=== PATIENT | male | born 1955 | race Caucasian/White ===

== ENCOUNTER 2017-04-05 19:45 | Inpatient (IN) | payer MEDICARE, MEDICAID ==
[~2017-04-05] VITALS: Ht 182.9 cm; Wt 106.6 kg
--- NOTE | 2017-04-05 20:15 | NUR ---
Pt biba to room for medical clearance prior to admission to MHU. Pt placed on a 5250. Reviewing pt's paperwork showed the pt arrived with a copy of the hold not the original. Sole Conditioner, Brittany, notified. ER MD Dr. Waite notified. BLS crew sent back to facility to retreive the original. Called and spoke to the charge nurse of the ICU SYDNEY Luong made aware of situation. Dispatch for ambulance crew also notified crew will be returning to facility to obtain original.
[2017-04-05] MEDS ORDERED: POLY255P2 PO (20:34)
[2017-04-05] MEDS ORDERED: LITH600C PO (20:34)
[2017-04-05] MEDS ORDERED: PANT40TA4 PO (20:34)
[2017-04-05] MEDS ORDERED: AMLO10TA2 PO (20:34)
[2017-04-05] MEDS ORDERED: TAMS0.4C34 PO (20:34)
[2017-04-05] MEDS ORDERED: HYDR25TA4 PO (20:34)
[2017-04-05] MEDS ORDERED: LABE100T PO (20:34)
[2017-04-05] MEDS ORDERED: IPRA12.9 IH (20:34)
[2017-04-05] MEDS ORDERED: HALO5TAB PO (20:34)
[2017-04-05] MEDS ORDERED: TIOT18CA3 IH (20:34)
[2017-04-05] MEDS ORDERED: HEPA500034 IJ (20:34)
[2017-04-05] MEDS ORDERED: NICO1PAT46 TD (20:34)
[2017-04-05] MEDS ORDERED: HALO2TAB PO (20:34)
[2017-04-05] MEDS ORDERED: SENN-167 PO (20:34)
[2017-04-05] MEDS ORDERED: CLOZ200T PO (20:34)
[2017-04-05] MEDS ORDERED: LORA2VIA6 IV (20:34)
--- NOTE | 2017-04-05 21:00 | NUR ---
Informed by Aidan OzunaPurchasing And Claims Supervisor that we would only have a copy of the 5250 because the original is filed with the court system. Primary SYDNEY Wilde and Dr. Waite notified.
--- NOTE | 2017-04-05 21:54 | NUR ---
Call placed to [facility], Dr. Gabriel will be paged.
[2017-04-05] MEDS ORDERED: SENNOSIDES 1 TABLET PO PRN (22:45)
[2017-04-05] MEDS ORDERED: hydrALAZINE HCL 25 MG TABLET PO PRN (22:45)
--- NOTE | 2017-04-05 22:56 | NUR ---
Pt. admitted to gps , under care of [facility] completed
[2017-04-05 23:15] VITALS: BP 133/81
[2017-04-05] MEDS ORDERED: MAGNESIUM HYDROXIDE 30 ML LIQUID UDC PO PRN (23:30)
[2017-04-05] MEDS ORDERED: MAG HYDROX/AL HYDROX/SIMETH 30 ML LIQUID UDC PO PRN (23:30)
[2017-04-06] MEDS ORDERED: ZOLPIDEM 5 MG TABLET ONE (00:16)
[2017-04-06] MEDS: ZOLPIDEM 5 MG TABLET PO PRN (00:33)
--- NOTE | 2017-04-06 01:00 | NUR ---
RECEIVED TO CARE, FROM THE EMERGENCY ROOM, TRANSFER FROM [facility]. BIB HIS BROTHER/CONSERVATOR. HAS A HISTORY OF SCHIZOPHRENIA. HE LIVES AT A [facility], WHERE HE HAD BEEN DECOMPENSATING, RECENTLY. HE WAS BROUGHT TO THE [facility], WHERE HE WAS TREATED IN ICU, FOR HYPERTENSIVE CRISIS.HE ALSO HAD A TONIC CLONIC SEIZURE, THAT LASTED ABOUT 3 MINUTES, ON 04/02/17 (THIS WAS THE FIRST EPISODE OF HIS HAVING SEIZURES). UPON ARRIVAL, HE WAS CONFUSED AND DISORGANIZED. HIS BROTHER PROVIDED INFORMATION. HE WAS ASSITED TO BED AT 0033, AND GIVEN PRN AMBIEN, FOR INSOMNIA. OF 99, HE APPEARS TO BE ASLEEP. NO DISTRESS NOTED. BED RAILS PADDED FOR SAFETY. BED ALARM ON. HOB ELEVATED. WILL CONTINUE TO MONITOR CLOSELY.
--- NOTE | 2017-04-06 06:00 | NUR ---
slept 1.5 hours, total. assisted with AM care, and shower. currently up in neli chair in activity room, talking to self. no distress noted. will continue to monitor closely.
--- NOTE | 2017-04-06 07:25 | NUR ---
RECEIVED TO CARE, PT [facility], PT IS CALM AND QUIET.
[2017-04-06 07:30] VITALS: BP 130/83
[2017-04-06 07:36] LABS: BASOPHILS % (AUTO) 0.1 % (0.0-2.0); EOSINOPHILS % (AUTO) 0.6 % (0.0-7.0); HEMOGLOBIN 14.6 G/DL (14.0-18.0); LYMPHOCYTES # (AUTO) 0.9 K/UL (0.8-4.8); LYMPHOCYTES % (AUTO) 12.9 % (20.5-51.5); MEAN CORPUSCULAR HEMOGLOBIN 30.9 UUG (27.0-31.0); MEAN CORPUSCULAR HGB CONC 35 g/dL (32.0-37.0); MEAN CORPUSCULAR VOLUME 88.8 FL (82.0-92.0); MONOCYTES # (AUTO) 0.6 K/UL (0.1-1.30); MONOCYTES % (AUTO) 8.2 % (0.0-11.0); NEUTROPHILS # (AUTO) 5.3 K/UL (1.8-8.9); NEUTROPHILS % (AUTO) 78.2 % (38.5-71.5); PLATELET COUNT (AUTO) 159 K/UL (150-450); RED BLOOD CELL COUNT(AUTO) 4.74 MIL/UL (4.7-6.1); WHITE BLOOD COUNT (AUTO) 6.9 K/UL (4.0-11.2)
[2017-04-06 07:57] LABS: THYROID STIMULATING HORMONE 3.02 mIU/mL (0.358-3.740)
[2017-04-06 08:09] LABS: BILIRUBIN,TOTAL 3.6 mg/dL (0.2-1.0); CREATININE 1.1 mg/dL (0.6-1.3); MAGNESIUM 1.9 mg/dL (1.8-2.4); PHOSPHOROUS 3.6 mg/dL (2.5-4.9); POTASSIUM 3.6 mmol/L (3.5-5.1)
[2017-04-06] MEDS: CARVEDILOL 3.125 MG TABLET PO SCH ×2 (09:49→23:03)
[2017-04-06] MEDS: HYDROCHLOROTHIAZIDE 25 MG TABLET PO SCH (09:49)
[2017-04-06] MEDS: AMLODIPINE 10 MG TABLET PO SCH (09:50)
[2017-04-06] MEDS: PANTOPRAZOLE SODIUM 40 MG TABLET.DR PO SCH (10:13)
[2017-04-06] MEDS: NICOTINE 7 MG/24HR PATCH TD SCH (10:18)
[2017-04-06 15:00] VITALS: BP 163/86
[2017-04-06] MEDS ORDERED: POLYETHYLENE GLYCOL 3350 238 GM POWDER PO SCH (16:00)
[2017-04-06] MEDS: CLOZAPINE 100 MG TABLET PO SCH ×2 (17:48→23:05)
[2017-04-06] MEDS: MIRALAX 17 GM POWD.PACK PO SCH (17:48)
--- NOTE | 2017-04-06 18:40 | NUR ---
PT IN GERICHAIR WATCHING TV IN DAYROOM, BROTHER VISITING PT.
[2017-04-06 20:58] VITALS: BP 120/81
[2017-04-06] MEDS: TAMSULOSIN HCL 0.4 MG CAP.SR.24H PO SCH (23:04)
[2017-04-07] MEDS: PANTOPRAZOLE SODIUM 40 MG TABLET.DR PO SCH (07:12)
[2017-04-07 07:14] LABS: BILIRUBIN,DIRECT 0.3 mg/dL (0.0-0.2); BILIRUBIN,TOTAL 2.8 mg/dL (0.2-1.0); TOTAL PROTEIN, SERUM 6.7 g/dL (6.4-8.2)
[2017-04-07 07:30] VITALS: BP 150/72
[2017-04-07] MEDS: HYDROCHLOROTHIAZIDE 25 MG TABLET PO SCH (08:45)
[2017-04-07] MEDS: NICOTINE 7 MG/24HR PATCH TD SCH (08:45)
[2017-04-07] MEDS: MIRALAX 17 GM POWD.PACK PO SCH (08:45)
[2017-04-07] MEDS: LORAZEPAM 0.5 MG TABLET PO PRN ×2 (08:45→13:07)
[2017-04-07] MEDS: CLOZAPINE 100 MG TABLET PO SCH ×3 (08:46→20:15)
[2017-04-07] MEDS: CARVEDILOL 3.125 MG TABLET PO SCH ×2 (08:46→20:15)
[2017-04-07] MEDS: AMLODIPINE 10 MG TABLET PO SCH (08:46)
[2017-04-07] MEDS: ACETAMINOPHEN 325 MG TABLET PO PRN (13:07)
[2017-04-07 15:24] VITALS: BP 106/56
[2017-04-07 20:00] VITALS: BP 133/79
[2017-04-07] MEDS: TAMSULOSIN HCL 0.4 MG CAP.SR.24H PO SCH (20:14)
[2017-04-08] MEDS: PANTOPRAZOLE SODIUM 40 MG TABLET.DR PO SCH (06:17)
[2017-04-08 07:30] VITALS: BP 128/77
[2017-04-08] MEDS: AMLODIPINE 10 MG TABLET PO SCH ×2 (09:00→10:50)
[2017-04-08] MEDS: MIRALAX 17 GM POWD.PACK PO SCH ×2 (09:00→10:50)
[2017-04-08] MEDS: HYDROCHLOROTHIAZIDE 25 MG TABLET PO SCH ×2 (09:00→10:50)
[2017-04-08] MEDS: CLOZAPINE 100 MG TABLET PO SCH ×4 (09:00→20:26)
[2017-04-08] MEDS: CARVEDILOL 3.125 MG TABLET PO SCH ×3 (09:00→20:27)
[2017-04-08] MEDS: NICOTINE 7 MG/24HR PATCH TD SCH (10:27)
--- NOTE | 2017-04-08 11:40 | NUR ---
Spoke to kassandra nurse and pt will be npo tmrw moring. will do abdomen limt and venous dop tmrw AM.
--- NOTE | 2017-04-08 13:22 | NUR ---
Initial discharge instructions: The patient resides at [facility] [[address] [place] [address]. [place] [address]; ]. JORDNO spoke with the Environmental Health Manager Ghassan who stated that they are able to accept the patient back upon discharge. JORDON spoke with the patient's brother/probate conservator Hoang Tinoco and he would like for the patient to return to the [facility]. JORDON will speak with the patient, family, and MD regarding most appropriate discharge plans. SS will form a safe and proper discharge.
[2017-04-08 17:02] VITALS: BP 132/74
[2017-04-08] MEDS: TAMSULOSIN HCL 0.4 MG CAP.SR.24H PO SCH (20:26)
[2017-04-08 20:40] VITALS: BP 136/79
--- NOTE | 2017-04-08 22:00 | NUR ---
received to care, up in wheel chair, pleasant upon approach. compliant with medications and staff direction. as of 2199, he appears to be asleep. no distress noted. will continue to monitor closely.
[2017-04-09] MEDS: ZOLPIDEM 5 MG TABLET PO PRN (01:53)
--- NOTE | 2017-04-09 01:53 | NUR ---
PRN ambien given for insomnia.
[2017-04-09] MEDS: ACETAMINOPHEN 325 MG TABLET PO PRN (01:54)
--- NOTE | 2017-04-09 02:30 | NUR ---
appears to be asleep. no distress noted.
--- NOTE | 2017-04-09 06:00 | NUR ---
slept 7 hours, total.
[2017-04-09] MEDS: PANTOPRAZOLE SODIUM 40 MG TABLET.DR PO SCH (06:40)
[2017-04-09 07:01] LABS: BASOPHILS % (AUTO) 0.3 % (0.0-2.0); EOSINOPHILS % (AUTO) 0.1 % (0.0-7.0); HEMOGLOBIN 12.9 G/DL (14.0-18.0); LYMPHOCYTES # (AUTO) 1.1 K/UL (0.8-4.8); LYMPHOCYTES % (AUTO) 15.1 % (20.5-51.5); MEAN CORPUSCULAR HEMOGLOBIN 31.5 UUG (27.0-31.0); MEAN CORPUSCULAR HGB CONC 36 g/dL (32.0-37.0); MEAN CORPUSCULAR VOLUME 87.8 FL (82.0-92.0); MONOCYTES # (AUTO) 0.7 K/UL (0.1-1.30); MONOCYTES % (AUTO) 10.5 % (0.0-11.0); NEUTROPHILS # (AUTO) 5.2 K/UL (1.8-8.9); PLATELET COUNT (AUTO) 163 K/UL (150-450)
[2017-04-09 07:09] LABS: HEMATOCRIT 36.1 % (40-50); RED BLOOD CELL COUNT(AUTO) 4.11 MIL/UL (4.7-6.1)
[2017-04-09 07:30] VITALS: BP 118/58
[2017-04-09 07:36] LABS: BILIRUBIN,TOTAL 2.3 mg/dL (0.2-1.0); CREATININE 1.1 mg/dL (0.6-1.3); MAGNESIUM 1.8 mg/dL (1.8-2.4); POTASSIUM 3.6 mmol/L (3.5-5.1); TOTAL PROTEIN, SERUM 6.4 g/dL (6.4-8.2)
[2017-04-09] MEDS: CLOZAPINE 100 MG TABLET PO SCH ×3 (09:55→20:14)
[2017-04-09] MEDS: NICOTINE 7 MG/24HR PATCH TD SCH (09:55)
[2017-04-09] MEDS: AMLODIPINE 10 MG TABLET PO SCH (09:56)
[2017-04-09] MEDS: CARVEDILOL 3.125 MG TABLET PO SCH ×2 (09:56→20:14)
[2017-04-09] MEDS: HYDROCHLOROTHIAZIDE 25 MG TABLET PO SCH (09:56)
[2017-04-09] MEDS: MIRALAX 17 GM POWD.PACK PO SCH (09:57)
[2017-04-09 16:38] VITALS: BP 136/69
[2017-04-09 19:30] VITALS: BP 136/75
[2017-04-09] MEDS: TAMSULOSIN HCL 0.4 MG CAP.SR.24H PO SCH (20:14)
[2017-04-10] MEDS: PANTOPRAZOLE SODIUM 40 MG TABLET.DR PO SCH (06:50)
[2017-04-10 07:30] VITALS: BP 143/59
[2017-04-10] MEDS: HYDROCHLOROTHIAZIDE 25 MG TABLET PO SCH (09:14)
[2017-04-10] MEDS: MIRALAX 17 GM POWD.PACK PO SCH (09:14)
[2017-04-10] MEDS: NICOTINE 7 MG/24HR PATCH TD SCH (09:15)
[2017-04-10] MEDS: CLOZAPINE 100 MG TABLET PO SCH ×3 (09:15→20:25)
[2017-04-10] MEDS: AMLODIPINE 10 MG TABLET PO SCH (09:15)
[2017-04-10] MEDS: CARVEDILOL 3.125 MG TABLET PO SCH ×2 (09:15→20:24)
[2017-04-10 10:10] LABS: HEPATITIS A AB, IgM Negative (Negative); HEPATITIS B SURFACE AG Negative (Negative)
[2017-04-10] MEDS: ACETAMINOPHEN 325 MG TABLET PO PRN (11:16)
[2017-04-10 16:00] VITALS: BP 113/57
[2017-04-10 20:12] VITALS: BP 134/76
[2017-04-10] MEDS: TAMSULOSIN HCL 0.4 MG CAP.SR.24H PO SCH (20:24)
--- NOTE | 2017-04-10 22:00 | NUR ---
received to care, lying in bed, isolative, but pleasant upon approach. compliant with medications and staff direction. no distress noted. fluids and bedtime snack provided. as of 2200, he appears to be asleep. no distress noted. will continue to monitor closely.
--- NOTE | 2017-04-11 06:00 | NUR ---
slept 7.5 hours, total. assisted with AM care, and shower.
[2017-04-11] MEDS: PANTOPRAZOLE SODIUM 40 MG TABLET.DR PO SCH (06:35)
[2017-04-11 07:30] VITALS: BP 128/54
[2017-04-11] MEDS: CLOZAPINE 100 MG TABLET PO SCH ×3 (08:38→20:17)
[2017-04-11] MEDS: HYDROCHLOROTHIAZIDE 25 MG TABLET PO SCH (08:38)
[2017-04-11] MEDS: NICOTINE 7 MG/24HR PATCH TD SCH (08:38)
[2017-04-11] MEDS: MIRALAX 17 GM POWD.PACK PO SCH (08:39)
[2017-04-11] MEDS: CARVEDILOL 3.125 MG TABLET PO SCH ×2 (08:39→20:17)
[2017-04-11] MEDS: AMLODIPINE 10 MG TABLET PO SCH (08:39)
--- NOTE | 2017-04-11 11:00 | NUR ---
PATIENT IS ALERT WITH DISORIENTATION HAS TENDENCY TO BE RUDE WITH WORDS REMAINS PARANOID AND SUSPICIOUS COMPLIANT WITH MEDICATIONS AND CARE.
[2017-04-11] MEDS: ACETAMINOPHEN 325 MG TABLET PO PRN (14:20)
[2017-04-11 16:00] VITALS: BP 121/81
--- NOTE | 2017-04-11 17:45 | NUR ---
GOING BACK AND FORTH FROM HIS ROOM TO THE DAY ROOM REMAIN COMPLIANT WITH MEDICATIONS AT THIS TIME
[2017-04-11] MEDS: TAMSULOSIN HCL 0.4 MG CAP.SR.24H PO SCH (20:17)
[2017-04-11 20:20] VITALS: BP 122/56
[2017-04-12] MEDS: PANTOPRAZOLE SODIUM 40 MG TABLET.DR PO SCH (06:23)
[2017-04-12 07:30] VITALS: BP 141/81
[2017-04-12] MEDS: HYDROCHLOROTHIAZIDE 25 MG TABLET PO SCH (10:43)
[2017-04-12] MEDS: CARVEDILOL 3.125 MG TABLET PO SCH ×2 (10:43→20:13)
[2017-04-12] MEDS: AMLODIPINE 10 MG TABLET PO SCH (10:44)
[2017-04-12] MEDS: MIRALAX 17 GM POWD.PACK PO SCH (10:45)
[2017-04-12] MEDS: NICOTINE 7 MG/24HR PATCH TD SCH (10:50)
[2017-04-12] MEDS: CLOZAPINE 100 MG TABLET PO SCH ×3 (10:51→20:13)
[2017-04-12 15:00] VITALS: BP 107/78
[2017-04-12] MEDS: TAMSULOSIN HCL 0.4 MG CAP.SR.24H PO SCH (20:13)
[2017-04-12 20:52] VITALS: BP 147/86
[2017-04-13] MEDS: PANTOPRAZOLE SODIUM 40 MG TABLET.DR PO SCH (06:13)
[2017-04-13 07:06] LABS: BASOPHILS % (AUTO) 0.3 % (0.0-2.0); EOSINOPHILS % (AUTO) 0.2 % (0.0-7.0); HEMATOCRIT 35.2 % (40-50); HEMOGLOBIN 12.4 G/DL (14.0-18.0); LYMPHOCYTES # (AUTO) 0.9 K/UL (0.8-4.8); LYMPHOCYTES % (AUTO) 10.9 % (20.5-51.5); MEAN CORPUSCULAR HEMOGLOBIN 30.8 UUG (27.0-31.0); MEAN CORPUSCULAR HGB CONC 35 g/dL (32.0-37.0); MEAN CORPUSCULAR VOLUME 87.5 FL (82.0-92.0); MONOCYTES # (AUTO) 0.8 K/UL (0.1-1.30); MONOCYTES % (AUTO) 9.3 % (0.0-11.0); NEUTROPHILS # (AUTO) 6.6 K/UL (1.8-8.9); NEUTROPHILS % (AUTO) 79.3 % (38.5-71.5); PLATELET COUNT (AUTO) 203 K/UL (150-450); RED BLOOD CELL COUNT(AUTO) 4.03 MIL/UL (4.7-6.1); WHITE BLOOD COUNT (AUTO) 8.3 K/UL (4.0-11.2)
[2017-04-13 07:30] VITALS: BP 116/77
[2017-04-13] MEDS: CARVEDILOL 3.125 MG TABLET PO SCH ×2 (08:41→20:24)
[2017-04-13] MEDS: CLOZAPINE 100 MG TABLET PO SCH ×3 (08:41→20:24)
[2017-04-13] MEDS: MIRALAX 17 GM POWD.PACK PO SCH (08:42)
[2017-04-13] MEDS: HYDROCHLOROTHIAZIDE 25 MG TABLET PO SCH (08:42)
[2017-04-13] MEDS: AMLODIPINE 10 MG TABLET PO SCH (08:42)
[2017-04-13] MEDS: NICOTINE 7 MG/24HR PATCH TD SCH (08:43)
--- NOTE | 2017-04-13 09:32 | NUR ---
NSG PT IN DAY ROOM, PT TOOK ALL AM MEDS.
[2017-04-13 16:59] VITALS: BP 170/72
[2017-04-13 20:00] VITALS: BP 139/82
[2017-04-13] MEDS: TAMSULOSIN HCL 0.4 MG CAP.SR.24H PO SCH (20:23)
[2017-04-14] MEDS: PANTOPRAZOLE SODIUM 40 MG TABLET.DR PO SCH (06:47)
[2017-04-14 07:30] VITALS: BP 133/71
[2017-04-14] MEDS: MIRALAX 17 GM POWD.PACK PO SCH (08:42)
[2017-04-14] MEDS: CLOZAPINE 100 MG TABLET PO SCH ×3 (08:42→20:26)
[2017-04-14] MEDS: HYDROCHLOROTHIAZIDE 25 MG TABLET PO SCH (08:42)
[2017-04-14] MEDS: AMLODIPINE 10 MG TABLET PO SCH (08:42)
[2017-04-14] MEDS: CARVEDILOL 3.125 MG TABLET PO SCH ×2 (08:43→20:26)
[2017-04-14] MEDS: NICOTINE 7 MG/24HR PATCH TD SCH (08:43)
[2017-04-14 16:00] VITALS: BP 143/89
[2017-04-14 20:16] VITALS: BP 129/74
[2017-04-14] MEDS: TAMSULOSIN HCL 0.4 MG CAP.SR.24H PO SCH (20:26)
[2017-04-15] MEDS: PANTOPRAZOLE SODIUM 40 MG TABLET.DR PO SCH (06:48)
[2017-04-15 07:30] VITALS: BP 137/58
[2017-04-15 08:18] LABS: CREATININE 1.1 mg/dL (0.6-1.3); POTASSIUM 3.5 mmol/L (3.5-5.1)
[2017-04-15] MEDS: CLOZAPINE 100 MG TABLET PO SCH ×3 (08:28→20:01)
[2017-04-15] MEDS: NICOTINE 7 MG/24HR PATCH TD SCH (08:29)
[2017-04-15] MEDS: HYDROCHLOROTHIAZIDE 25 MG TABLET PO SCH (08:29)
[2017-04-15] MEDS: AMLODIPINE 10 MG TABLET PO SCH (08:29)
[2017-04-15] MEDS: MIRALAX 17 GM POWD.PACK PO SCH (08:29)
[2017-04-15] MEDS: CARVEDILOL 3.125 MG TABLET PO SCH ×2 (08:30→20:01)
[2017-04-15 16:04] VITALS: BP 134/69
[2017-04-15] MEDS: TAMSULOSIN HCL 0.4 MG CAP.SR.24H PO SCH (20:01)
[2017-04-15 21:00] VITALS: BP 133/77
--- NOTE | 2017-04-15 22:00 | NUR ---
received to care, up in wheel chair watching tv, pleasant upon approach. compliant with medications and staff direction. remains hyperverbal at times. as of 2200, he remains awake, lying in bed. no distress noted. will continue to monitor closely.
[2017-04-15] MEDS: ACETAMINOPHEN 325 MG TABLET PO PRN (23:23)
[2017-04-15] MEDS: ZOLPIDEM 5 MG TABLET PO PRN (23:26)
--- NOTE | 2017-04-15 23:26 | NUR ---
PRN ambien, given for insomnia.
--- NOTE | 2017-04-16 00:10 | NUR ---
appears to be asleep. no distress noted.
--- NOTE | 2017-04-16 06:00 | NUR ---
slept 7.5 hours, total. assisted with AM care. no distress noted.
[2017-04-16] MEDS: PANTOPRAZOLE SODIUM 40 MG TABLET.DR PO SCH (06:15)
[2017-04-16 07:30] VITALS: BP 130/77
[2017-04-16] MEDS: NICOTINE 7 MG/24HR PATCH TD SCH (09:15)
[2017-04-16] MEDS: CLOZAPINE 100 MG TABLET PO SCH ×3 (09:15→20:12)
[2017-04-16] MEDS: AMLODIPINE 10 MG TABLET PO SCH (09:15)
[2017-04-16] MEDS: HYDROCHLOROTHIAZIDE 25 MG TABLET PO SCH (09:15)
[2017-04-16] MEDS: CARVEDILOL 3.125 MG TABLET PO SCH ×2 (09:16→20:13)
[2017-04-16] MEDS: MIRALAX 17 GM POWD.PACK PO SCH (09:16)
[2017-04-16 17:13] VITALS: BP 127/76
[2017-04-16 20:00] VITALS: BP 132/74
[2017-04-16] MEDS: TAMSULOSIN HCL 0.4 MG CAP.SR.24H PO SCH (20:12)
--- NOTE | 2017-04-16 22:00 | NUR ---
received to care, lying in bed, isolative, but pleasant upon approach. compliant with medications and staff direction. snack and fluids given, at bedtime. as of 2200, he appears to be asleep. no distress noted. will continue to monitor closely.
--- NOTE | 2017-04-17 06:00 | NUR ---
slept 8.5 hours, total. assisted with AM care, and shower. no distress noted.
[2017-04-17] MEDS: PANTOPRAZOLE SODIUM 40 MG TABLET.DR PO SCH (06:24)
[2017-04-17 08:00] VITALS: BP 131/73
[2017-04-17] MEDS: NICOTINE 7 MG/24HR PATCH TD SCH (08:45)
[2017-04-17 08:46] VITALS: BP 137/73
[2017-04-17] MEDS: CARVEDILOL 3.125 MG TABLET PO SCH (08:46)
[2017-04-17] MEDS: HYDROCHLOROTHIAZIDE 25 MG TABLET PO SCH (08:46)
[2017-04-17] MEDS: CLOZAPINE 100 MG TABLET PO SCH (08:46)
[2017-04-17] MEDS: AMLODIPINE 10 MG TABLET PO SCH (08:46)
[2017-04-17] MEDS: MIRALAX 17 GM POWD.PACK PO SCH (08:47)
--- NOTE | 2017-04-17 08:51 | NUR ---
DC Note: The patient will be discharged today to [facility] ([facility]) [[place] [address] ] via ambulance at 4:00 pm. Spoke with Olimpia in admissions at the facility who stated that they will be accepting the patient today. SW spoke with the patient and he is aware and agreeable with the discharge plan. JORDON spoke with the patient's brother/probate conservator Hoang Garcia and he is aware and agreeable with the discharge plan. The patient will follow-up at the facility with child nutrition director Dr. Guille Pepper and psychiatrist Dr. Zakia Whitaker. The patient was provided with referrals for tobacco cessation for [employer] [id number] and [employer] .
[2017-04-17] MEDS: ACETAMINOPHEN 325 MG TABLET PO PRN (14:17)
--- NOTE | 2017-04-17 15:45 | NUR ---
GPS: Nursing Notes: Discharge Notes: Patient is awake and responding to his name, compliant with his medications and cooperative with nursing care, denies any SI/HI, denies any AH/VH, denies any pain or discomfort, denies any SOB, discharge to [facility] at [address] [place] [phone] , report given to Barbara RN supervisor pairing and inspecting, transported to facility via ambulance. SW spoke with the patient's brother/probate conservator Hoang Garcia and he is aware and agreeable with the discharge plan. The patient will follow-up at the facility with compressor mechanic bus Dr. Guille Pepper and psychiatrist Dr. Zakia Whitaker. The patient was provided with referrals for tobacco cessation for [employer] [id number] and [employer] .
== END 2017-04-17 15:45 | DRG 885 ==
LOC: ER 19:51 → GPS 22:57
PROVIDERS: ADMIT Psychiatry & Neurology Psychiatry; ATTEND Internal Medicine
DX: F20.0 Paranoid schizophrenia (principal); I11.0 Hypertensive heart disease with heart failure; E11.65 Type 2 diabetes mellitus with hyperglycemia; E23.2 Diabetes insipidus; F03.90 Unspecified dementia, unspecified severity, without behavioral disturbance, psychotic disturbance, mood disturbance, and anxiety; I50.32 Chronic diastolic (congestive) heart failure; D32.0 Benign neoplasm of cerebral meninges; Z86.61 Personal history of infections of the central nervous system; J44.9 Chronic obstructive pulmonary disease, unspecified; E78.5 Hyperlipidemia, unspecified; F25.0 Schizoaffective disorder, bipolar type; K21.9 Gastro-esophageal reflux disease without esophagitis; R22.32 Localized swelling, mass and lump, left upper limb; R90.81 Abnormal echoencephalogram; G89.29 Other chronic pain; M54.40 Lumbago with sciatica, unspecified side; M19.90 Unspecified osteoarthritis, unspecified site; K80.20 Calculus of gallbladder without cholecystitis without obstruction; E66.9 Obesity, unspecified; Z68.31 Body mass index [BMI] 31.0-31.9, adult; N28.1 Cyst of kidney, acquired; Z87.01 Personal history of pneumonia (recurrent); D63.8 Anemia in other chronic diseases classified elsewhere
CPT/HCPCS: 36415; 71010; 76705; 76881; 83735; 84100; 84443; 85025; 86705; 86709; 86803; 87340; 93005; 95819; 97116; 97161; 97530; A4663; A9150